=== PATIENT | female | born 1970 | race Caucasian/White ===

== ENCOUNTER → 2017-04-19 | Outpatient (CLI) | payer OTHER ==
[~2017-04-19] MED LIST: MYCO500T4 PO; NORT10CA2 PO; PANT40TA PO
--- NOTE | 2017-04-20 07:40 | MAMMOGRAPHY REPORT ---
BILATERAL DIGITAL SCREENING MAMMOGRAM TOMOSYNTHESIS WITH CAD: 04/19/2017 CLINICAL HISTORY: Routine screening. Patient has no complaints. TECHNIQUE: Breast tomosynthesis in addition to standard 2D mammography was performed. Current study was also evaluated with a Computer Aided Detection (CAD) system. COMPARISON: Comparison is made to exams dated: 04/16/2016 mammogram, 03/07/2014 mammogram, 02/20/2013 u ltrasound, 08/04/2012 ultrasound, 08/04/2012 mammogram, and 12/04/2011 mammogram - [facility]. BREAST COMPOSITION: The tissue of both breasts is extremely dense, which lowers the sensitivity of m ammography. FINDINGS: There is a possible new cluster of microcalcifications in the subareolar upper outer anter ior right breast, for which additional spot magnification views are recommended. There is stable asymmetry in the superior posterior left breast, projecting over the pectoralis muscl e on the MLO view. Evidence of prior surgery in the left breast. No other suspicious mass, building architectural designer ural distortion or cluster of microcalcifications is seen. IMPRESSION: ACR BI-RADS CATEGORY 0: INCOMPLETE EVALUATION: NEED ADDITIONAL IMAGING EVALUATION The possible new cluster of microcalcifications in the subareolar upper outer anterior right breast n eed additional imaging evaluation. The patient will be called to schedule an appointment. Approximately 10% of breast cancers are not detected with mammography. A negative mammographic report should not delay biopsy if a clinically suggestive mass is present. Muna Ruffin M.D. ay/:04/19/2017 15:17:23 Centrifugal Casting Machine Operator: Jeanne ALANIZ(Consuelo)(Evaristo), [facility] letter sent: Addl Imaging 0 BI-RADS Code: ACR BI-RADS Category 0: Incomplete Evaluation: Need Additional Imaging Evaluation
== END | disposition home or self-care (01) ==
LOC: C.MAMM 10:58
PROVIDERS: ATTEND Family Medicine
DX: Z12.31 Encounter for screening mammogram for malignant neoplasm of breast (principal); R92.8 Other abnormal and inconclusive findings on diagnostic imaging of breast

== ENCOUNTER → 2017-04-28 | Outpatient (CLI) | payer OTHER ==
--- NOTE | 2017-04-29 07:49 | MAMMOGRAPHY REPORT ---
UNILATERAL RIGHT DIGITAL DIAGNOSTIC MAMMOGRAM AND TARGETED RIGHT ULTRASOUND: 04/28/2017 CLINICAL HISTORY: Callback from screening mammogram for right breast calcifications. TECHNIQUE: Spot magnification right cc and ML views were obtained. COMPARISON: Comparison is made to exams dated: 04/19/2017 mammogram, 04/16/2016 mammogram, 03/07/2014 m ammogram, 02/20/2013 ultrasound, 02/20/2013 mammogram, and 08/04/2012 ultrasound - [facility]. BREAST COMPOSITION: The tissue of the right breast is extremely dense, which lowers the sensitivity of mammography. FINDINGS: Spot magnification views of the right breast demonstrate faint grouped amorphous calcificat ions in the right superior subareolar breast, measuring approximately 8 mm in total extent on the cc view. Immediately posterior and lateral to the cluster are other grouped calcifications which are li near in distribution although outline a tubular vessel on the lateral view and are consistent with be nign vascular calcifications. After the additional spot magnification views were performed, the patient reported frankly bloody nip ple discharge from the right nipple. Therefore, ultrasound was performed of the right subareolar suha ast, which shows no intraductal masses or other suspicious sonographic abnormalities. A few incident al anechoic benign cysts were seen, including a 6 x 9 mm cyst in the right subareolar breast and a 7 x 4 m cyst with a few thin internal septations in the right 7:00 periareolar breast. The patient reports having a history of left bloody nipple discharge for which duct excision was perf ormed approximately 5 years ago, with pathology reportedly showing inflammation. Although the calcif ications do not have a particularly suspicious appearance, given the right bloody nipple discharge an d given that they are newly visualized, the calcifications are indeterminate and biopsy is recommende d. The calcifications are not amenable to stereotactic biopsy due to the subareolar location, theref ore, surgical biopsy is recommended. IMPRESSION: ACR BI-RADS CATEGORY 4: SUSPICIOUS, TARGETED ULTRASOUND ACR BI-RADS CATEGORY 4: SUSPICIO US 1. Bloody nipple discharge was noted from the right nipple after the additional magnification views were obtained. No clear intraductal mass or other suspicious sonographic abnormality is evident. Re commend surgical consultation for further evaluation. 2. Faint 8 mm group of calcifications in the right subareolar breast. Given the right bloody nipple discharge and given that the calcifications are newly visualized, the calcifications are suspicious a nd biopsy is recommended. The calcifications are not amenable to stereotactic biopsy due to the suba reolar location, therefore, surgical biopsy is recommended. A phone call was made to the physician's office to confirm faxed results were received. The patient has been verbally notified of the results. Approximately 10% of breast cancers are not detected with mammography. A negative mammographic report should not delay biopsy if a clinically suggestive mass is present. Kristina Black M.D. ah/:04/28/2017 12:33:46 Scientific Linguist: Aishwarya CODY)(Evaristo), [facility] letter sent: Abnormal 4/5 BI-RADS Code: ACR BI-RADS Category 4: Suspicious Ultrasound BI-RADS: ACR BI-RADS Category 4: Suspici ous
== END | disposition home or self-care (01) ==
LOC: C.MAMM 08:26
PROVIDERS: ATTEND Family Medicine
DX: R92.0 Mammographic microcalcification found on diagnostic imaging of breast (principal); R92.1 Mammographic calcification found on diagnostic imaging of breast

== ENCOUNTER → 2017-05-06 | Outpatient (CLI) | payer OTHER ==
[~2017-05-06] MED LIST changes: +GADAVIST IV PRN
--- NOTE | 2017-05-06 12:11 | DIAGNOSTIC IMAGING REPORT ---
Brain MRI WITH AND WITHOUT CONTRAST HISTORY: INCREASED WEAKNESS IN EXTREMITY, ONSET OF VERTIGO TECHNIQUE: Multiplanar multisequence MRI of the brain was performed both before and after the intravenous administration of contrast. COMPARISON STUDY: None. FINDINGS: There are no areas of restricted diffusion to suggest acute infarction. The midline structures are intact. The paranasal sinuses are clear. The mastoid air cells are clear. The ventricles and sulci are within normal limits for age. There is no mass, hematoma, midline shift. The major vascular flow-voids at the skull base are well maintained. Postcontrast sequences show no areas of abnormal enhancement. There are a total of 3 punctate foci of T2 hyperintensity seen within the subcortical white matter of the frontal lobes. IMPRESSION: No acute intracranial abnormality. A few punctate foci of T2 hyperintensity seen within the subcortical white matter of the frontal lobes. This is nonspecific but unlikely to represent multiple sclerosis. This favors minimal microvascular ischemic change. Electronically signed by: Nino Shankar M.D. 05/06/2017 12:10 PM Dictated Date/Time: 05/06/2017 12:01 PM
== END | disposition home or self-care (01) ==
LOC: C.MRIBC 10:45
PROVIDERS: ATTEND Psychiatry & Neurology Neurology
DX: G37.9 Demyelinating disease of central nervous system, unspecified (principal)

== ENCOUNTER → 2017-06-11 | Outpatient (CLI) | payer OTHER ==
--- NOTE | 2017-06-14 15:18 | MAMMOGRAPHY REPORT ---
BREAST MRI OF BOTH BREASTS : 06/11/2017 CLINICAL HISTORY: Recent surgical excision of right subareolar breast calcifications, with pathology yielding LCIS as well as benign duct proliferation with columnar cell hyperplasia and luminal calcifi cations. COMPARISON: Comparison is made to exams dated: 04/28/2017 ultrasound, 04/28/2017 mammogram, 7 mammogram, 04/16/2016 mammogram, 03/07/2014 mammogram, and 02/20/2013 mammogram - [facility]. Technique: The patient was placed prone in a dedicated breast imaging coil. Precontrast axial T1-rula ghted, axial T2-weighted fat saturation, and axial T1-weighted fat saturation images were obtained. After the administration of 6 mL of Gadavist IV contrast, sequential T1-weighted fat saturation image s were obtained. Subtraction images were obtained of the dynamic contrast enhanced sequences, and 3- D reformations were performed. The [employer] software was used for kinetic analysis. Findings: There is marked background parenchymal enhancement involving the right breast, and there is moderate background parenchymal enhancement involving the left breast, which lowers the sensitivity of the exa m. The enhancement involving the right breast is diffusely asymmetric compared to the left breast. The asymmetric non-mass enhancement involving the right breast demonstrates a predominantly persisten t kinetic pattern with some scattered plateau and washout kinetics seen. The enhancement is slightly more prominent in the lateral aspect of the breast. No discrete suspicious enhancing mass is seen i n either breast. There are postsurgical changes in the right subareolar breast from recent surgical excision which yielded LCIS, including a T2 hyperintense, nonenhancing 3.1 x 1.5 cm fluid collection in the right subareolar breast at the surgical bed, consistent with a hematoma (series 4 image 32). There are scattered circumscribed T2 hyperintense nonenhancing masses bilaterally, consistent with be nign cysts. There is no evidence of axillary adenopathy. The chest wall structures are negative. Visualized ext ramammary soft tissues are grossly unremarkable. IMPRESSION: ACR BI-RADS CATEGORY 4: SUSPICIOUS 1. Postsurgical changes in the right subareolar breast from recent surgical excision which yielded LC IS, with a 3.1 cm hematoma at the surgical bed. 2. Diffusely asymmetric non-mass enhancement of the right breast compared to the left, without a disc rete enhancing mass seen. Findings could represent normal asymmetric background parenchymal enhancem ent and/or post surgical changes, however, mammographically occult in-situ disease is not excluded. R ecommend MRI guided core needle biopsy for further evaluation. Given that recent surgery was perform ed on this breast and some of the enhancement could be related to postsurgical changes, the other alt ernative would be to perform a short interval follow-up bilateral breast MRI in 3 months and if the a symmetric enhancement persists then biopsy could be performed at that time. A phone call was made to the physician's office to confirm faxed results were received. Kristina Black M.D. ah/:06/13/2017 10:49:53 Economics Lecturer: research physicist, [facility] BI-RADS Code: ACR BI-RADS Category 4: Suspicious
== END | disposition home or self-care (01) ==
LOC: C.MRI 12:55
PROVIDERS: ATTEND Surgery
DX: D05.01 Lobular carcinoma in situ of right breast (principal); R92.2 Inconclusive mammogram; Z98.890 Other specified postprocedural states

== ENCOUNTER → 2017-09-13 | Outpatient (CLI) | payer OTHER ==
--- NOTE | 2017-09-14 15:15 | MAMMOGRAPHY REPORT ---
BREAST MRI OF BOTH BREASTS : 09/13/2017 CLINICAL HISTORY: 47-year-old woman initially callback from screening mammography in April 2017 for microcalcifications in the subareolar right breast. She underwent surgical excisional biopsy/duct e xcision in the right breast which yielded LCIS. A breast MRI performed after surgery demonstrated gl obal asymmetric enhancement of the right breast compared to the left for which biopsy versus very lei rt follow-up MRI was recommended. COMPARISON: Comparison is made to exams dated: 02/20/2013 ultrasound, 03/07/2014 mammogram, 04/16/2016 mammogram, 04/19/2017 mammogram, 04/28/2017 ultrasound, and 06/11/2017 breast MRI - [facility]. TECHNIQUE: Using a 1.5 Suzan magnet and dedicated breast coil, multisequence axial images were obtain ed through the breasts. After uneventful IV administration of 6 mL of Gadavist, dynamic multiphase c ontrast-enhanced axial images, and sagittal postcontrast were obtained. Temporal subtraction axial i mages and 3-D MIP images are provided. Everything was then reviewed on a 3-D workstation, [employer]. FINDINGS: Right breast: There are numerous scattered T2 hyperintense subcentimeter cysts in the right breast. There is moderate background enhancement of the right breast which is predominantly nodular and patch y in pattern. This is decreased from the confluent global enhancement of the right breast seen on pr ior MRI. Currently, the enhancement of the right breast appears symmetric to the left, and the globa l asymmetric enhancement seen on the prior exam was likely secondary to prior surgery. The kinetic p attern of the nodular areas of enhancement is predominantly persistent and plateau, with scattered ar eas of washout kinetics. There is no dominant enhancing mass, focal area of washout kinetics or arch itectural distortion. A fluid collection is no longer identified in the subareolar right breast. No abnormal skin thickening or nipple retraction. No suspicious right axillary lymphadenopathy. Left breast: There are numerous scattered T2 hyperintense subcentimeter cysts in the left breast. Th ere is moderate background enhancement of the left breast, predominantly nodular and patchy in patter n. The nodular areas of enhancement are similar in pattern to the prior breast MRI dated 06/11/2017, although some of the foci of enhancement are linear, angular and irregular. Given the diffuse bilate ral nature and similar appearance of the enhancement in both breasts, this is likely within the range of normal background. No new dominant enhancing mass, suspicious washout kinetics or areas of archi tectural distortion identified. No focal skin thickening or nipple retraction. No suspicious left a xillary lymphadenopathy. IMPRESSION: ACR-BI-RADS CATEGORY 3: PROBABLY BENIGN 1. Interval decrease in the previously observed global asymmetric non-mass enhancement of the right breast compared to the left, suggesting benignity, possibly due to prior surgery. 2. Moderate diffuse nodular enhancement of both breasts, likely within the range of normal backgroun d. The nodular enhancement pattern of the left breast is similar to the prior MRI although some of t he nodular areas of enhancement in each breast are angular and irregular. Therefore another follow-u p breast MRI is recommended in 6-12 months to ensure longer stability. 3. Evolving postsurgical changes in the subareolar right breast, with resolution of the previously o bserved 3 cm fluid collection. 4. No suspicious axillary adenopathy bilaterally. 5. Annual screening mammography is also due in April 2018. The patient will receive written notification of the results. Muna Ruffin M.D. ay/:09/13/2017 21:14:31 Infection Control Practitioner: community leader, [facility] letter sent: Follow Up Recommended 3 BI-RADS Code: ACR-BI-RADS Category 3: Probably Benign
== END | disposition home or self-care (01) ==
LOC: C.MRI 08:35
PROVIDERS: ATTEND Surgery
DX: R92.8 Other abnormal and inconclusive findings on diagnostic imaging of breast (principal); N64.9 Disorder of breast, unspecified; N63.10 Unspecified lump in the right breast, unspecified quadrant; N63.20 Unspecified lump in the left breast, unspecified quadrant

== ENCOUNTER → 2017-11-09 | Outpatient (CLI) | payer OTHER ==
[~2017-11-09] MED LIST changes: -GADAVIST IV PRN
--- NOTE | 2017-11-10 15:47 | MAMMOGRAPHY REPORT ---
UNILATERAL RIGHT DIGITAL DIAGNOSTIC MAMMOGRAM TOMOSYNTHESIS WITH CAD: 11/09/2017 CLINICAL HISTORY: 47-year-old woman presents for a follow-up in the right breast. 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 A recent breast MRI demonstrated diffuse nodular background enhancement, but no longer global asymmetry of the right versus left breast enhancement. A six-month follow-up breast MRI was also recommended based on that exam. TECHNIQUE: Right breast CC and MLO 2D and tomosynthesis images, spot magnification right CC and ML vi ews were obtained. Current study was also evaluated with a Computer Aided Detection (CAD) system. COMPARISON: Comparison is made to exams dated: 09/13/2017 breast MRI, 06/11/2017 breast MRI, 04/28/2017 ultrasound, 04/28/2017 mammogram, 04/19/2017 mammogram, and 04/16/2016 mammogram - [facility]. BREAST COMPOSITION: The tissue of the right breast is extremely dense, which lowers the sensitivity of mammography. FINDINGS: There is evidence of prior surgery in the anterior subareolar right breast, with mild skin thickening and differing contour of the right nipple comparing to prior mammograms. No obvious new m ass, developing asymmetry or focal area of architectural distortion is identified. There are faint m icrocalcifications in the slightly superior, middle one third of the right breast on the MLO view, th ought to project laterally based on the CC view, for which additional spot magnification views were o btained. The spot magnification views demonstrate no residual microcalcifications in the anterior, subareolar breast at the site of recent excisional biopsy. There are a few scattered round microcalcifications and 2-3 groupings of faint punctate microcalcifications in the superior middle one third of the breas t (best seen on the mag ML view) that may have been present on the prior 04/19/2017 and 04/16/2016 mamm ograms, but difficult for accurate comparison given slight differences in positioning and technique. Assessing the location of these microcalcifications and comparing to the MRI, it is unclear if this correlates with any enhancement given the diffuse nodular background enhancement on MRI. Given the n umerous groupings of the microcalcifications and slightly different morphology from the biopsy-proven lobular neoplasia in the subareolar right breast, these other calcifications may represent benign fi brocystic change. However, a close follow-up diagnostic mammogram including spot magnification views is recommended to ensure stability in 6 months. IMPRESSION: ACR-BI-RADS CATEGORY 3: PROBABLY BENIGN 1. There are expected postsurgical changes in the right breast, with approximately 3 groupings of fa int punctate microcalcifications in the superior middle one third of the right breast that could repr esent benign fibrocystic change. However, a close follow-up right diagnostic mammogram including spo t magnification views is recommended to ensure stability in 6 months. 2. Based on a recent breast MRI, a six-month follow-up breast MRI is also recommended, given the dif fuse nodular background parenchymal enhancement. 3. Given the personal history of extremely dense breasts and lobular neoplasia, would recommend cont inued long-term screening with breast MRI in addition to mammography. These results and recommendations were discussed with the patient at the time of the exam. Approximately 10% of breast cancers are not detected with mammography. A negative mammographic report should not delay biopsy if a clinically suggestive mass is present. Muna Ruffin M.D. ay/:11/09/2017 16:16:48 K 9 Police Officer: Aishwarya ALANIZ(Consuelo)(Evaristo), [facility] letter sent: Follow Up Recommended 3 BI-RADS Code: ACR-BI-RADS Category 3: Probably Benign
== END | disposition home or self-care (01) ==
LOC: C.MAMM 09:49
PROVIDERS: ATTEND Surgery
DX: R92.8 Other abnormal and inconclusive findings on diagnostic imaging of breast (principal); R92.0 Mammographic microcalcification found on diagnostic imaging of breast

== ENCOUNTER → 2017-11-18 | Outpatient (CLI) | payer OTHER ==
[2017-11-18 09:35] LABS: BASO % 0.4 %; BASO ABS # 0.02 K/uL (0-0.2); EOS ABS # 0.05 K/uL (0-0.5); HEMATOCRIT 39.5 % (37-47); IG# 0.01 K/uL (0.00-0.02); LYMPH % 26.7 %; LYMPH ABS # 1.32 K/uL (1.2-3.4); MEAN CELL VOLUME 90.6 fL (80-100); MEAN CORPUSCULAR HEMOGLOBIN 29.8 pg (25-34); MEAN CORPUSCULAR HGB CONC 32.9 g/dl (32-36); MEAN PLATELET VOLUME 9.1 fL (7.4-10.4); MONO % 8.3 %; MONO ABS # 0.41 K/uL (0.11-0.59); NEUT % 63.4 %; NEUT ABS # 3.13 K/uL (1.4-6.5); PLATELET COUNT 272 K/uL (130-400); RED CELL DISTRIBUTION WIDTH CV 12.5 % (11.5-14.5); RED CELL DISTRIBUTION WIDTH SD 41.6 fL (36.4-46.3); WHITE BLOOD COUNT 4.94 K/uL (4.8-10.8)
[2017-11-18 09:49] LABS: ALBUMIN 3.8 gm/dl (3.4-5.0); ALT/SGPT 22 U/L (12-78); AST/SGOT 13 U/L (15-37); BLOOD UREA NITROGEN 16 mg/dl (7-18); CALCIUM 8.4 mg/dl (8.5-10.1); CARBON DIOXIDE 25 mmol/L (21-32); CREATININE 0.71 mg/dl (0.60-1.20); GLUCOSE 78 mg/dl (70-99); POTASSIUM 3.8 mmol/L (3.5-5.1); SODIUM 140 mmol/L (136-145)
[2017-11-18 09:59] LABS: ALKALINE PHOSPHATASE 62 U/L (45-117); CHOLESTEROL 159 mg/dl (0-200); LDL CHOLESTEROL CALCULATED 77 mg/dl; TOTAL PROTEIN 7.2 gm/dl (6.4-8.2)
== END | disposition home or self-care (01) ==
LOC: C.LAB 08:12
PROVIDERS: ATTEND Neuromusculoskeletal Medicine & OMM
DX: R53.83 Other fatigue (principal)

== ENCOUNTER → 2017-11-26 | Outpatient (CLI) | payer OTHER ==
[~2017-11-26] MED LIST changes: +GADAVIST IV PRN
--- NOTE | 2017-11-26 17:48 | DIAGNOSTIC IMAGING REPORT ---
THORACIC SPINE COMBO CLINICAL HISTORY: DEVIC'S DISEASE neuromyelitis optica COMPARISON STUDY: No previous studies for comparison. FINDINGS: Imaging was performed in the axial and sagittal planes, before and after the administration of 5.5 cc of intravenous Gadavist. There are no suspicious areas of marrow replacement. There is a tiny focal fatty rests/hemangiomas at T8 level. The spinal cord lesions are visualized. There is a small central disc protrusion at the T7-8 level. There are mild disc bulges at T9-10 and T10-11 levels. Postcontrast images reveal no pathologically enhancing lesions. IMPRESSION: 1. No spinal cord lesions identified 2. Small central disc protrusion at the T7-8 level 3. Mild disc bulges the T9-T10 and T10-11 levels. Electronically signed by: Anders Kwon M.D. 11/26/2017 5:46 PM Dictated Date/Time: 11/26/2017 5:41 PM
--- NOTE | 2017-11-26 17:54 | DIAGNOSTIC IMAGING REPORT ---
MRI CERVICAL SPINE COMBO CLINICAL HISTORY: DEVIC'S DISEASE TECHNIQUE: Sagittal and axial T1, T2 and STIR images were obtained. Pre and post contrast images were also acquired. The patient was administered 5.5 cc of intravenous Gadavist. COMPARISON STUDY: No previous studies for comparison. There are no suspicious areas of marrow replacement. No intrinsic cervical cord lesions are visualized. C2-3: There is no evidence of disc bulge or focal herniation. There is no spinal or foraminal stenosis. C3-4: There is a small left paracentral disc protrusion which deforms the left anterior aspect the thecal sac. There is minimal spinal cord deformity. There is no foraminal narrowing. C4-5: There is a broad-based circumferential disc bulge with minimal spinal canal narrowing. There is mild bilateral foraminal narrowing. C5-6 :There is a circumferential disc bulge with minimal spinal canal narrowing. There is bilateral foraminal narrowing C6-7: There is no evidence of disc bulge or focal herniation. There is no evidence of spinal or foraminal stenosis. C7-T1: There is no evidence of disc bulge or focal herniation. There is no evidence of spinal or foraminal stenosis. Postcontrast images reveal no pathologically enhancing lesions. IMPRESSION: 1. No cervical cord lesions are visualized 2. Small left paracentral disc protrusion at the C3-4 level 3. C4-5 and C5-C6 disc bulges with secondary minimal spinal canal narrowing and mild bilateral foraminal narrowing Electronically signed by: Anders Kwon M.D. 11/26/2017 5:52 PM Dictated Date/Time: 11/26/2017 5:48 PM
== END | disposition home or self-care (01) ==
LOC: C.MRI 16:10
PROVIDERS: ATTEND Psychiatry & Neurology Neurology
DX: M50.20 Other cervical disc displacement, unspecified cervical region (principal); M51.24 Other intervertebral disc displacement, thoracic region; G36.0 Neuromyelitis optica [Devic]

== ENCOUNTER → 2018-02-10 | Outpatient (CLI) | payer OTHER ==
[~2018-02-10] MED LIST changes: -GADAVIST IV PRN
--- NOTE | 2018-02-10 14:54 | DIAGNOSTIC IMAGING REPORT ---
L LOWER EXT JOINT WITHOUT CLINICAL HISTORY: 47 years-old Female with LEFT KNEE PAIN. Acute left knee pain, most pronounced laterally with soft tissue swelling COMPARISON: Left knee ultrasound 01/24/2018 TECHNIQUE: Multiplanar, multisequence MRI of the left knee was performed without intravenous contrast. FINDINGS: MENISCI: Multidirectional linear increased T2 signal involves the anterior horn lateral meniscus with extension to the inferior articular surface, nicely seen on images 14 and 15 of series 6 and image 13 series 9 compatible with complex tear. Moderate reactive parameniscal edema. There is a 0.6 x 0.2 cm T2 hyperintense focus adjacent to the lateral meniscal body on image 17 series 9 suggesting a possible parameniscal cyst. No evidence of displaced fragment. Medial meniscus is sharp in contour and appears intact. CRUCIATE LIGAMENTS: The anterior and posterior cruciate ligaments are normal in morphology and course. Mucoid degeneration of the intact ACL. COLLATERAL LIGAMENTS: The popliteus tendon, biceps femoris tendon, fibular collateral ligament and iliotibial band are intact. The superficial and deep components of the medial collateral ligament are intact. EXTENSOR MECHANISM: The quadriceps and patellar tendons are intact. The medial and lateral patellar retinacula are intact. Trace fluid within the deep prepatellar bursa. KNEE JOINT: Small joint effusion. No high-grade chondral loss or intra-articular loose body. Low-grade chondromalacia of the patellar apex. BONE MARROW: The bone marrow signal is age appropriate. No fracture, marrow edema, or marrow replacing process. 3 mm subcortical cyst of the anterior lateral tibial plateau. SOFT TISSUES: Trace Hinkle's cyst measures up to 2.2 cm in cranial caudal dimension. Mild adjacent deep tissue edema suggests leaking component of the Hinkle's cyst. There is moderate amount of edema within Hoffa's fat pad. IMPRESSION: 1. Acute appearing complex tear of the anterior horn lateral meniscus with moderate reactive parameniscal edema and suggested subcentimeter adjacent parameniscal cyst. 2. Small joint effusion with moderate amount of edema within Hoffa's fat pad, also possibly reactive. 3. Trace fluid within the deep prepatellar bursa may reflect developing bursitis. 4. No acute ligamentous tear. The above report was generated using voice recognition software. It may contain grammatical, syntax or spelling errors. Electronically signed by: Marcus Nobles M.D. 02/10/2018 2:53 PM Dictated Date/Time: 02/10/2018 2:43 PM
== END | disposition home or self-care (01) ==
LOC: C.MRIBC 13:32
PROVIDERS: ATTEND Orthopaedic Surgery
DX: S83.282A Other tear of lateral meniscus, current injury, left knee, initial encounter (principal); X58.XXXA Exposure to other specified factors, initial encounter

== ENCOUNTER 2025-06-23 09:19 | Inpatient (IN) ==
[2025-06-23 10:08] LABS: Hematocrit (blood only) 36.1 % (37.0-47.0); Hemoglobin 12.3 g/dL (12.0-16.0); Immature Granulocytes # (auto) 0.02 K/uL (0.01-0.20); Immature Granulocytes % (auto) 0.3 %; Mean Corpuscular Hemoglobin 30.3 pg (25.0-34.0); Mean Corpuscular Volume 88.9 fL (80.0-100.0); Platelet Count 290 K/uL (130-400); RDW Standard Deviation 39.9 fL (36.4-46.3); Red Blood Count 4.06 M/uL (4.20-5.40); White Blood Count 7.48 K/ul (4.8-10.8)
[2025-06-23 10:24] LABS: Alanine Aminotransferase 16 U/L (7-52); Albumin Globulin Ratio 1.5 (0.9-2); Albumin Level 4.1 gm/dl (3.4-5.0); Alkaline Phosphatase 73 U/L (34-104); Anion Gap 9 (3-11); Bilirubin,Total 0.5 mg/dl (0.2-1.0); Blood Urea Nitrogen 14 mg/dl (6-23); Calcium 8.8 mg/dl (8.6-10.3); Carbon Dioxide 24 mmol/L (21-32); Chloride 106 mmol/L (98-107); Creatinine Clr Calc Pharmacy 92.3 ml/min; Globulin 2.7 gm/dl (2.5-4.0); Glucose 92 mg/dl (70-99(Fasting)); Magnesium 2.1 mg/dl (1.7-2.4); Potassium 3.9 mmol/L (3.5-5.1); Sodium 139 mmol/L (136-145); Total Protein 6.8 gm/dl (6.0-8.3)
--- NOTE | 2025-06-23 10:24 | Emergency Department Note ---
Impression & Plan Pneumonia, Myalgia, Weakness ED Provider Note NAME: CHRISTOFER MAS AGE: 55 SEX: F : 1970 ARRIVES VIA: Walk-In INFORMANT: Patient ED PROVIDER(S): Dheeraj Joyner DO CHIEF COMPLAINT: Headache, myalgias and arthralgias HPI: Patient is a 55-year-old female with a past medical history of IBS, lupus, and optic myelitis who presents to the ER for not feeling well. Symptoms initially started within the past week and has been having headaches diffuse myalgias and arthralgias. She had MRIs done as an outpatient and followed up with her bending frame operator who sent her down to [place] for a new medication benlysta which she started on Wednesday. She has been feeling hot and cold since then and had a severe headache. No recorded fevers. She notes that she has a stabbing pain in the left frontal region followed by diffuse pain throughout the entire head. No neck stiffness. She notes that she does have a little residual cough from URI that occurred about 2 weeks ago. She notes that she always has a sore throat and it is unchanged. She notes that all of her joints do bother her. ADDITIONAL HISTORY OBTAINED: Per HPI Chronic Medical/Social Conditions Affecting Care: Per HPI PAST MEDICAL HISTORY:See Below PAST SURGICAL HISTORY:See Below FAMILY HISTORY:See Below SOCIAL HISTORY:See Below HOME MEDICATIONS:See Below ALLERGIES:See Below VITALS:See Below PHYSICAL EXAMINATION: GENERAL: Sitting up in bed, alert, well appearing, well nourished, no distress, non-toxic EYE EXAM: normal conjunctiva. PERRL and EOM's intact. OROPHARYNX: no exudate, no erythema, lips, buccal mucosa, and tongue normal and mucous membranes are moist NECK: supple, no nuchal rigidity, no adenopathy, non-tender LUNGS: Clear to auscultation. Normal chest wall mechanics HEART: no murmurs, S1 normal and S2 normal ABDOMEN: abdomen soft, non-tender, normo-active bowel sounds, no masses, no rebound or guarding. UPPER EXTREMITIES: upper extremities are grossly normal. LOWER EXTREMITIES: No pitting edema. NEURO EXAM: Normal sensorium, cranial nerves II-XII grossly intact, normal speech, no gross weakness of arms, no gross weakness of legs. MEDICAL DECISION MAKING: Patient is a 55-year-old female who presents ER for above-stated complaint. IV was established blood work was obtained. Labs show no significant leukocytosis or anemia. BMP with LFTs bilirubin and lactic acid was unremarkable. Troponin was negative. Pro-Erwin was negative. UA was clean. Viral panel was negative. Chest x-ray suggested bilateral infiltrates. CTA of the chest was performed and showed and confirmed bilateral pneumonia. Did discuss with the radiologist and confirmed this. Patient was given IV cefepime and IV azithromycin. CT head was negative. Patient was updated at bedside. Was given IV fluids, Toradol, Benadryl and Compazine. Headache improved significantly. Discussed case with the hospitalist for further evaluation management treatment. Consults/Care Managements Discussions: Per [facility] Triage Nursing notes reviewed. Limited review of prior medical records performed Vital Signs: reviewed and remarkable for no significant abnormalities Differential diagnosis: Differential Diagnosis includes but is not limited to headache, tension headache, cluster headache, migraine, subarachnoid hemorrhage, meningitis, mass, central venous thrombus, concussion, trauma and epidural/subdural hemorrhage. ER treatment provided: See below Diagnostics interpreted by me include EKG and cardiac monitoring as listed below: -Cardiac Monitoring: An order was placed for continuous cardiac monitoring. The monitor shows a rate of 80 with sinus rhythm. -ECG: Sinus rhythm rate 87 Normal axis No PVCs QTc 435 -Laboratory studies:Interpreted by me as stated above in MDM and shown below. Imaging studies: Xrays: As interpreted by me: Portable AP upright 1 view of the chest shows no focal trait CTs show: CT head and CT angio of the chest as described above Procedures:none Critical Care: None Past Med/Surg History Problem List (Updated 06/23/25 @ 15:48 by Fina Harris PA-C) Asthenia Lupus (systemic lupus erythematosus) Headache Weakness (Acute) Myalgia (Acute) Pneumonia (Acute) Early satiety High risk medication use Dyspnea on exertion Mild persistent asthma Idiopathic interstitial pneumonia Colon cancer screening Dyspnea Chronic cough cough is much better COVID-19 (Acute) COVID-19 (Acute) MCL sprain of left knee Knee pain, left Tear of medial meniscus of left knee Lobular carcinoma in situ (LCIS) of breast (Acute) Devic's disease (Acute) False positive antinuclear antibody level (Acute) Migraine, unspecified, not intractable, without status migrainosus (Acute) Positive LOVE (antinuclear antibody) (Acute) Vitamin D insufficiency Lumbar radiculopathy Abdominal pain, epigastric Encounter for pre-operative examination Neuromyelitis optica DX'D 2004 F/U [facility]-HAS AFFECTED HER BLADDER HX VISION LOSS AND RETURNED Urinary urgency History of IBS Back pain IBS (irritable bowel syndrome) (Chronic) Abdominal pain (Acute) Constipation (Acute) Abdominal pain (Acute) Medical History Hx of migraines Lumbar radiculopathy Mild persistent asthma states has resolved since taking hydroxychloriquine Devic's disease follows with neuro at [facility]- dr. salgado- also sees neuro at [facility]- no deficits Spinal stenosis Chronic back pain Lupus follows with dr. rosado in [facility]- states missing one marker for lupus History of dyspnea NOW RESOLVED History of COVID-19 + TEST AUG 04 2022 Difficult intravenous access Lobular carcinoma in situ hx- took tamoxifen for short time Abnormal CT scan, chest Palpitations hx/not for awhile/recent heart monitor worn- unknown results Lung nodule Fatigue Gastritis determined by endoscopy Immunosuppression Ischemic colitis hx Neuromyelitis optica follows with neurology at [facility] and also with Dr. Domínguez Herniated disc L4 L5-BACK PAIN GERD (gastroesophageal reflux disease) Temporomandibular joint disorder no clicking or locking recently- has had both in past Surgical History History of esophagogastroduodenoscopy (EGD) History of bronchoscopy states felt has lupus/ has lung damage Status post laparoscopic hysterectomy History of tooth extraction History of breast biopsy X 2-MILK DUCT REMOVAL X 2-3 both breasts History of colonoscopy History of section X 2 Family History Sister Breast cancer Unknown Heart disease Hypertension Asthma Father Pre-diabetes Brain cancer Mother History of stroke Denies family history of Colon cancer Ovarian cancer Prostate cancer Myocardial infarction Social History Smoking Status: Never smoker Second Hand Exposure: No; Do You Dip or Chew Tobacco: No; Hx Alcohol Use: Yes Alcohol type: wine Alcohol Intake Frequency: Monthly or Less Hx Substance Use: No Preferred Language: Bulgarian Communication Ability: Effective Visual Impairment: No Limitations Hearing Ability: Normal Case Mgr Required: No Beliefs That Will Affect Care: None marital status: Current Living Situation: Spouse current occupational status: unemployed How many Children do You have: 2 Feels Safe at Home: Yes Childhood Exposure to Second-Hand Smoke: Yes Diet: regular caffeine: Yes during the past year weight has: remained stable Dental Care, Regularly: Yes Physical Activity Frequency: Daily Seatbelt Use: always Sunscreen Use: Yes Assistive Devices: Contacts and Glasses Allergies Allergies Allergy/AdvReac Type Severity Reaction Status Date / Time Sulfa (Sulfonamide Allergy Mild RASH Verified 12/28/24 10:42 Antibiotics) Home Meds Home Medications Medication Instructions Recorded Confirmed albuterol sulfate 90 mcg/actuation 2 puffs inhalation UD PRN 10/27/22 06/23/25 aerosol inhaler shortness of breath or wheezing hydroxychloroquine 200 mg tablet 200 - 300 mg PO UD 12/25/24 06/23/25 magnesium 200 mg tablet 200 mg PO DAILY 12/25/24 06/23/25 belimumab 200 mg/mL subcutaneous 200 mg subcut WK 06/23/25 06/23/25 auto-injector (Benlysta) gabapentin 100 mg capsule 100 mg PO HS 06/23/25 06/23/25 Previous Rx's Medication Instructions Recorded mycophenolate mofetil 500 mg tablet 1,000 mg (2 x 500 mg) PO BID #360 11/15/24 tabs pantoprazole 40 mg tablet,delayed 40 mg PO BID #60 tabs 12/20/24 release Results & Data (ED) Vital Signs Vital Signs - 24 hr 06/23/25 09:24 06/23/25 10:00 06/23/25 10:00 Temperature 37.5 C Temperature Source Oral Pulse Rate 95 H 82 Pulse Rate from SpO2 Sensor 83 Respiratory Rate 18 17 Respiratory Effort / Characteristics Non-Labored Spontaneous Respiratory Depth Normal Respiratory Pattern Regular Blood Pressure 138/75 136/81 144/84 H Blood Pressure Mean 96 99 104 Pulse Oximetry 90 91 Oxygen Delivery Method Room Air Sepsis Recent Fever Within 48 Hours No Sepsis New/Unexplained Change in Mental Status N/A Sepsis Action Taken by Nursing No Action Required 06/23/25 10:09 06/23/25 10:30 06/23/25 11:00 Temperature Temperature Source Pulse Rate 86 81 83 Pulse Rate from SpO2 Sensor 77 85 Respiratory Rate 17 19 Respiratory Effort / Characteristics Respiratory Depth Respiratory Pattern Blood Pressure 151/82 H Blood Pressure Mean 105 Pulse Oximetry 92 96 Oxygen Delivery Method Sepsis Recent Fever Within 48 Hours Sepsis New/Unexplained Change in Mental Status Sepsis Action Taken by Nursing 06/23/25 12:15 06/23/25 12:30 06/23/25 13:00 Temperature Temperature Source Pulse Rate 98 H 81 98 H Pulse Rate from SpO2 Sensor 98 H 81 96 H Respiratory Rate 23 17 23 Respiratory Effort / Characteristics Respiratory Depth Respiratory Pattern Blood Pressure 134/65 141/81 H Blood Pressure Mean 88 101 Pulse Oximetry 88 L 94 93 Oxygen Delivery Method Sepsis Recent Fever Within 48 Hours Sepsis New/Unexplained Change in Mental Status Sepsis Action Taken by Nursing 06/23/25 13:30 06/23/25 14:00 06/23/25 14:28 Temperature Temperature Source Pulse Rate 98 H 101 H 98 H Pulse Rate from SpO2 Sensor Respiratory Rate 24 16 Respiratory Effort / Characteristics Respiratory Depth Respiratory Pattern Blood Pressure 144/77 H 131/79 Blood Pressure Mean 99 96 Pulse Oximetry Oxygen Delivery Method Sepsis Recent Fever Within 48 Hours Sepsis New/Unexplained Change in Mental Status Sepsis Action Taken by Nursing 06/23/25 14:30 06/23/25 15:00 Temperature Temperature Source Pulse Rate 100 H 99 H Pulse Rate from SpO2 Sensor 100 H 98 H Respiratory Rate 15 15 Respiratory Effort / Characteristics Respiratory Depth Respiratory Pattern Blood Pressure 138/74 134/78 Blood Pressure Mean 95 96 Pulse Oximetry 93 90 Oxygen Delivery Method Sepsis Recent Fever Within 48 Hours Sepsis New/Unexplained Change in Mental Status Sepsis Action Taken by Nursing Laboratory Data 06/23/25 09:54 06/23/25 09:54 Lab Results 06/23/25 06/23/25 06/23/25 Range/Units 09:54 11:41 11:44 WBC 7.48 (4.8-10.8) K/ul RBC 4.06 L (4.20-5.40) M/uL Hgb 12.3 (12.0-16.0) g/dL Hct 36.1 L (37.0-47.0) % MCV 88.9 (80.0-100.0) fL MCH 30.3 (25.0-34.0) pg MCHC 34.1 (32.0-36.0) g/dL RDW Std Deviation 39.9 (36.4-46.3) fL RDW Coeff of Yocasta 12.3 (11.5-14.5) % Plt Count 290 (130-400) K/uL MPV 8.9 L (9.4-12.4) fL Immature Gran % (Auto) 0.3 % Neut % (Auto) 84.8 % Lymph % (Auto) 7.1 % [place] % (Auto) 7.0 % Eos % (Auto) 0.4 % Baso % (Auto) 0.4 % Neut # (Auto) 6.35 (1.40-6.50) K/uL Lymph # (Auto) 0.53 L (1.20-3.40) K/uL [place] # (Auto) 0.52 (0.11-0.59) K/uL Eos # (Auto) 0.03 (0.00-0.50) K/uL Baso # (Auto) 0.03 (0.00-0.20) K/uL Immature Gran # (Auto) 0.02 (0.01-0.20) K/uL Sodium 139 (136-145) mmol/L Potassium 3.9 (3.5-5.1) mmol/L Chloride 106 (98-107) mmol/L Carbon Dioxide 24 (21-32) mmol/L Anion Gap 9 (3-11) BUN 14 (6-23) mg/dl Creatinine 0.62 (0.6-1.2) mg/dl Est Cr Clr Drug Dosing 92.3 ml/min eGFR 105.10 BUN/Creatinine Ratio 22.6 H (10-20) Glucose 92 (70-99(Fasting)) mg/dl Lactate 1.2 (0.4-2.0) mmol/L Calcium 8.8 (8.6-10.3) mg/dl Magnesium 2.1 (1.7-2.4) mg/dl Total Bilirubin 0.5 (0.2-1.0) mg/dl AST 20 (13-39) U/L ALT 16 (7-52) U/L Alkaline Phosphatase 73 (34-104) U/L Troponin I High Sens < 2.3 (0-14) pg/ml Total Protein 6.8 (6.0-8.3) gm/dl Albumin 4.1 (3.4-5.0) gm/dl Globulin 2.7 (2.5-4.0) gm/dl Albumin/Globulin Ratio 1.5 (0.9-2) Procalcitonin 0.11 (0-0.5) ng/ml Urine Color Yellow Urine Appearance Clear (Clear) Urine pH 7.0 (4.5-7.5) Ur Specific [place] 1.009 (1.000-1.030) Urine Protein Negative (Negative) Urine Glucose (UA) Negative (Negative) Urine Ketones Negative (Negative) Urine Blood Negative (Negative) Urine Nitrite Negative (Negative) Urine Bilirubin Negative (Negative) Urine Urobilinogen Negative (Negative) Ur Leukocyte Esterase Negative (Negative) Urine Comment Adenovirus (PCR) Not Detected (NotDetected) B. pertussis DNA (PCR) Not Detected (NotDetected) B.parapertussis DNA PCR Not Detected (NotDetected) C. pneumoniae DNA (PCR) Not Detected (NotDetected) Coronavirus OC43 (PCR) Not Detected (NotDetected) Coronavirus HKU1 (PCR) Not Detected (NotDetected) Coronavirus 229E (PCR) Not Detected (NotDetected) SARS-CoV-2 (PCR) Not Detected (NotDetected) Coronavirus NL63 (PCR) Not Detected (NotDetected) Human Metapneumovir PCR Not Detected (NotDetected) Influenza Type A (PCR) Not Detected (NotDetected) Influenza Type B (PCR) Not Detected (NotDetected) M. pneumoniae (PCR) Not Detected (NotDetected) Parainfluenza 1 (PCR) Not Detected (NotDetected) Parainfluenza 2 (PCR) Not Detected (NotDetected) Parainfluenza 3 (PCR) Not Detected (NotDetected) Parainfluenza 4 (PCR) Not Detected (NotDetected) RSV (PCR) Not Detected (NotDetected) Entero/Rhino (PCR) Not Detected (NotDetected) Administered Medications Discontinued Medications Diphenhydramine HCl (Diphenhydramine 50 Mg/Ml Vial) 50 mg IV NOW STA Stop: 06/23/25 10:20 Last Admin: 06/23/25 11:51 Dose: 50 mg Documented By: ALICE Sodium Chloride (Nss) 1,000 mls @ 999 mls/hr IV .Q1H1M ONE Stop: 06/23/25 11:19 Last Infusion: 06/23/25 15:14 Dose: Infused Documented By: Admin: 06/23/25 11:52 Dose: 999 mls/hr Documented By: ALICE Prochlorperazine (Compazine) 2 mls @ 1 mls/min IV ONE ONE Stop: 06/23/25 10:20 Last Admin: 06/23/25 11:52 Dose: 1 mls/min Documented By: ALICE Cefepime HCl (Maxipime 2000mg) 2,000 mg in 20 mls @ 5 mls/min IV NOW STA; Protocol Stop: 06/23/25 12:20 Last Admin: 06/23/25 12:42 Dose: 5 mls/min Documented By: ALICE Azithromycin (Zithromax) 500 mg in 255 mls @ 127.5 mls/hr IV NOW ONE Stop: 06/23/25 14:22 Last Infusion: 06/23/25 15:19 Dose: Infused Documented By: Admin: 06/23/25 13:16 Dose: 127.5 mls/hr Documented By: ALICE Ioversol (Optiray 320 125ml) 119 ml IV ONCE ONE Stop: 06/23/25 12:13 Last Admin: 06/23/25 12:12 Dose: 119 ml Documented By: MATEUS Ketorolac Tromethamine (Ketorolac Tromethamine 15 Mg/Ml Vial) 15 mg IV NOW ONE Stop: 06/23/25 10:20 Last Admin: 06/23/25 11:51 Dose: 15 mg Documented By: ALICE Imaging Data Radiologist's Impression: Chest X-Ray 06/23/25 10:19 Clinical History: Sepsis Technique: A frontal view of the chest was obtained Comparison is made to the prior examination dated 04/21/2025 Findings: There are new patchy left midlung and bilateral lung base opacities, concerning for pneumonia. The heart size is within normal limits. No pleural effusion or pneumothorax is seen. There is no definite pulmonary nodule. No fracture is noted. No foreign body is seen Impression: Suspected bilateral pneumonia Electronically signed by Lupillo Boudreaux 06-23-2025 11:06 AM Chest CTA 06/23/25 11:32 Technique: Axial computed tomography images were obtained of the chest after the administration of intravenous contrast according to the CT angiogram protocol Comparison is made to the prior CT dated 09/10/2022 Findings: There is no definite sign of pulmonary embolism. There are new multifocal groundglass and interstitial infiltrates throughout both lungs, most likely due to pneumonia. There is no pleural effusion or pneumothorax. There is an unchanged 5 mm right middle lobe nodule There are mildly enlarged mediastinal lymph nodes, measuring up to 1.3 cm in short axis. No hilar or axillary adenopathy is seen. The thoracic aorta appears unremarkable with no sign of aneurysm or dissection. There is no pericardial effusion The visualized upper abdomen appears unremarkable. No fracture is seen. No focal osseous lesion is evident Impression: 1. No definite sign of pulmonary embolism 2. Multifocal groundglass and interstitial pulmonary infiltrates bilaterally, likely due to viral or other atypical pneumonia 3. Mild mediastinal adenopathy, which may be secondary to the pneumonia 4. Unchanged 5 mm right middle lobe nodule, almost certainly benign given the long-term stability Electronically signed by Lupillo Boudreaux 06-23-2025 12:[address] 06/23/25 11:38 Clinical History: Headache. Technique: Axial computed tomography images were obtained of the brain from the vertex to the skull base without intravenous contrast. Findings: There is no sign of intracranial hemorrhage. There is normal bess-white matter differentiation with no sign of acute or old infarction. No midline shift or other form of herniation is identified. There is no hydrocephalus. No obvious mass lesion is seen on this noncontrast examination. The visualized portions of the orbits and paranasal sinuses appear unremarkable. The mastoid air cells appear clear Impression: Unremarkable noncontrast CT of the brain Electronically signed by Lupillo Boudreaux 06-23-2025 12:27 PM Discharge Plan Visit Data Chief Complaint: Flu Like Symptoms Stated Complaint: HEADACHE, FEVER, CHILLS, ACHES ED Provider: Dheeraj Joyner Discharge Problem: Pneumonia, Myalgia, Weakness Patient Disposition: Admitted As Inpatient Condition: Fair Discharge Instructions Interventions: ED Discharge Assessment Last Done: 06/23/25 15:42 Forms Stand Alone Forms: My [employer] Prescriptions Prescriptions: No Action mycophenolate mofetil 500 mg tablet 1,000 mg PO BID Qty: 360 3RF pantoprazole 40 mg tablet,delayed release (DR/EC) 40 mg PO BID Qty: 60 11RF albuterol sulfate 90 mcg/actuation HFA aerosol inhaler 2 puffs INH UD PRN (Reason: shortness of breath or wheezing) Patient Comments: have not needed in awhile gabapentin 100 mg capsule 100 mg PO HS Benlysta 200 mg/mL auto-injector 200 mg SUBCUT WK Rx Instructions: WEDNESDAY hydroxychloroquine 200 mg tablet 200 - 300 mg PO UD Rx Instructions: 200 / 300 every other day magnesium 200 mg Tablet 200 mg PO DAILY Referrals Referrals: Colten Yan DO [Primary Care Provider] - Discharge Problem: Pneumonia Qualifiers: Pneumonia type: due to unspecified organism Laterality: unspecified laterality Lung location: unspecified part of lung Qualified Code(s): J18.9 - Pneumonia, unspecified organism
--- NOTE | 2025-06-23 11:06 | XRay Report ---
Clinical History: Sepsis Technique: A frontal view of the chest was obtained Comparison is made to the prior examination dated 04/21/2025 Findings: There are new patchy left midlung and bilateral lung base opacities, concerning for pneumonia. The heart size is within normal limits. No pleural effusion or pneumothorax is seen. There is no definite pulmonary nodule. No fracture is noted. No foreign body is seen Impression: Suspected bilateral pneumonia Electronically signed by Lupillo Boudreaux 06-23-2025 11:06 AM
[2025-06-23] MEDS: diphenhydrAMINE 50 MG/ML VIAL IV STA (11:51)
[2025-06-23] MEDS: KETOROLAC TROMETHAMINE 15 MG/ML VIAL IV ONE (11:51)
[2025-06-23] MEDS: PROCHLORPERAZINE 2 ML IV ONE (11:52)
[2025-06-23] MEDS: SODIUM CHLORIDE 0.9% 1,000 ML IV ONE (11:52)
[2025-06-23 12:04] LABS: Appearance Urine Clear (Clear); Glucose Urine UA Negative (Negative)
[2025-06-23] MEDS: OPTIRAY 320 125ml IV ONE (12:12)
--- NOTE | 2025-06-23 12:26 | CT Scan Report ---
Technique: Axial computed tomography images were obtained of the chest after the administration of intravenous contrast according to the CT angiogram protocol Comparison is made to the prior CT dated 09/10/2022 Findings: There is no definite sign of pulmonary embolism. There are new multifocal groundglass and interstitial infiltrates throughout both lungs, most likely due to pneumonia. There is no pleural effusion or pneumothorax. There is an unchanged 5 mm right middle lobe nodule There are mildly enlarged mediastinal lymph nodes, measuring up to 1.3 cm in short axis. No hilar or axillary adenopathy is seen. The thoracic aorta appears unremarkable with no sign of aneurysm or dissection. There is no pericardial effusion The visualized upper abdomen appears unremarkable. No fracture is seen. No focal osseous lesion is evident Impression: 1. No definite sign of pulmonary embolism 2. Multifocal groundglass and interstitial pulmonary infiltrates bilaterally, likely due to viral or other atypical pneumonia 3. Mild mediastinal adenopathy, which may be secondary to the pneumonia 4. Unchanged 5 mm right middle lobe nodule, almost certainly benign given the long-term stability Electronically signed by Lupillo Boudreaux 06-23-2025 12:26 PM
--- NOTE | 2025-06-23 12:27 | CT Scan Report ---
Clinical History: Headache. Technique: Axial computed tomography images were obtained of the brain from the vertex to the skull base without intravenous contrast. Findings: There is no sign of intracranial hemorrhage. There is normal bess-white matter differentiation with no sign of acute or old infarction. No midline shift or other form of herniation is identified. There is no hydrocephalus. No obvious mass lesion is seen on this noncontrast examination. The visualized portions of the orbits and paranasal sinuses appear unremarkable. The mastoid air cells appear clear Impression: Unremarkable noncontrast CT of the brain Electronically signed by Lupillo Boudreaux 06-23-2025 12:27 PM
[2025-06-23] MEDS: CEFEPIME 2000MG 2,000 MG/20 ML SYR IV STA (12:42)
--- NOTE | 2025-06-23 13:06 | History & Physical Report ---
"Date of Service June 23, 2025 Assessment & Plan (1) Pneumonia: (2) Headache: (3) Lupus (systemic lupus erythematosus): (4) Devic's disease: (5) Asthenia: (6) GERD (gastroesophageal reflux disease): Plan Pt is a 55 y/o F with a PMHx significant for Migraines, SLE, Asthma, Devic's Disease, Lobluar CA in situ of breast, GERD, and Chronic back pain w/ spinal stenosis who presented to the ED c/o flu-like symptoms. #Pneumonia - 06/23 CXR w/ suspected bilat PNA; 06/23 Chest CTA w/ multifocal ground glass and interstitial pulmonary infiltrates bilat - likely viral/atyp PNA; 06/23 Resp Biofire Neg -Continuous O2 monitoring, Supplemental O2 prn, sat goal 90% -NSS IVF 100l @ 125mL/hr -Solumedrol 125mg x1 then Prednisone 30mg TID -IV Azithromycin + IV Rocephin, Transition Rocephin to PO Cefpodoxime after 48hrs then complete 7 day course of abx -DuoNebs Q4HWA -Albuterol HFA prn -CBC, BMP, Procal, CRP in AM #Headache | Hx Migraines - 06/[address] unremarkable; Noted in ED and improved w/ ED tx -Dehydration may be contributing, IVF as above -Pain: Tylenol 650mg prn -Monitor for sx #SLE - Follows w/ Rheumatology -Continue Hydroxychloroquine -Continue Mycophenolate Mofetil -Continue Benlysta - Dosed Q -ESR in AM #Devic's Disease - Followed by [facility] Neuro; Last appt 06/22 #Asthma - Continue Albuterol/actuation inhaler, as above #Lung Nodule - 06/23 Chest CTA notes unchanged 5mm RML nodule, likely benign #GERD - No acute concerns -Continue Pantoprazole 40mg BID #Chronic Lumbar Back Pain | Spinal Stenosis - No acute concerns -Continue Gabapentin VTE Proph: Lovenox Dispo: Admit Med/Surg CODE STATUS: Full Code History of Present Illness Chief Complaint: Flu Like Sx Primary Care Provider: Colten Yan, DO Pt is a 55 y/o F with a PMHx significant for Migraines, SLE, Asthma, Devic's Disease, Lobular CA in situ, GERD, TMJ, and Chronic back pain w/ spinal stenosis who presented to the ED c/o flu-like symptoms, at bedside. Pt notes that she had been cyclically experiencing flu-like sx off & on x a few mos [employer]. Pt's notes that during this time, she had developed a Malar Rash and scheduled an appointment with Rheumatology who noted that the pt was most likely experiencing SLE flares and recommended that she initiate a new SLE management medication, Benlysta. She received the 1st dose of this on 06/21. The following day, she had an appointment with her Neurologist. On the way home, her noticed that she started to look very ill and pt notes that she began to develop a headache and body aches. Pt notes that after her appointment she immediately went home and went to bed after being hit with a very sudden wave of fatigue. When the pt woke up today (06/23) she continued to feel exhausted and have a severe headache. Pt additionally notes a loss of appetite during this time. notes that pt has been taking Tylenol & Motrin regularly and has still developed low-grade fevers of 99F-100F. Pt Endorsees Fatigue, fever, chills, H/A, and Loss of appetite. She additionally admits to a brief episode of congestion 2wks [employer], but notes difficulty differentiating that from other episodes of flu-like sx. Pt denies wt loss/gain, changes in hearing or vision, cough, dyspnea, wheezing, palpitations, chest pain, N/V/D, constipation, frequency, urgency, dysuria, hematuria, and any current rashes or lesions. Pt notes that 2wks [employer] she experienced an episode of flu-like sx that may have been a cold. Pt was transported to the ED via . While in the ED, pt's VS demonstrated O2 Sat of 90% while on RA. CBC, CMP, and Procal were unremarkable. The patient received a CXR w/ suspected bilateral pneumonia, Chest CTA w/ Multifocal ground glatt and interstitial pulmonary infiltrates bilaterally. Pt was diagnosed with pneumonia and admitted to the hospital for further evaluation and care. Allergies Allergy/AdvReac Type Severity Reaction Status Date / Time Sulfa (Sulfonamide Allergy Mild RASH Verified 12/28/24 10:42 Antibiotics) Home Medications Medication Instructions Recorded Confirmed Type albuterol sulfate 90 mcg/actuation 2 puffs inhalation UD PRN 10/27/22 06/23/25 History aerosol inhaler shortness of breath or wheezing mycophenolate mofetil 500 mg tablet 1,000 mg (2 x 500 mg) PO BID #360 11/15/24 06/23/25 Rx tabs pantoprazole 40 mg tablet,delayed 40 mg PO BID #60 tabs 12/20/24 06/23/25 Rx release hydroxychloroquine 200 mg tablet 200 - 300 mg PO UD 12/25/24 06/23/25 History magnesium 200 mg tablet 200 mg PO DAILY 12/25/24 06/23/25 History belimumab 200 mg/mL subcutaneous 200 mg subcut WK 06/23/25 06/23/25 History auto-injector (Benlysta) gabapentin 100 mg capsule 100 mg PO HS 06/23/25 06/23/25 History Past Med/Surg History Problem List (Updated 06/23/25 @ 15:48 by STANLEY GonzalesC) Asthenia Lupus (systemic lupus erythematosus) Headache Weakness (Acute) Myalgia (Acute) Pneumonia (Acute) Early satiety High risk medication use Dyspnea on exertion Mild persistent asthma Idiopathic interstitial pneumonia Colon cancer screening Dyspnea Chronic cough cough is much better COVID-19 (Acute) COVID-19 (Acute) MCL sprain of left knee Knee pain, left Tear of medial meniscus of left knee Lobular carcinoma in situ (LCIS) of breast (Acute) Devic's disease (Acute) False positive antinuclear antibody level (Acute) Migraine, unspecified, not intractable, without status migrainosus (Acute) Positive LOVE (antinuclear antibody) (Acute) Vitamin D insufficiency Lumbar radiculopathy Abdominal pain, epigastric Encounter for pre-operative examination Neuromyelitis optica DX'D 2004 F/U [facility]-HAS AFFECTED HER BLADDER HX VISION LOSS AND RETURNED Urinary urgency History of IBS Back pain IBS (irritable bowel syndrome) (Chronic) Abdominal pain (Acute) Constipation (Acute) Abdominal pain (Acute) Medical History Hx of migraines Lumbar radiculopathy Mild persistent asthma states has resolved since taking hydroxychloriquine Devic's disease follows with neuro at [facility]- dr. salgado- also sees neuro at [facility]- no deficits Spinal stenosis Chronic back pain Lupus follows with dr. rosado in [facility]- states missing one marker for lupus History of dyspnea NOW RESOLVED History of COVID-19 + TEST AUG 04 2022 Difficult intravenous access Lobular carcinoma in situ hx- took tamoxifen for short time Abnormal CT scan, chest Palpitations hx/not for awhile/recent heart monitor worn- unknown results Lung nodule Fatigue Gastritis determined by endoscopy Immunosuppression Ischemic colitis hx Neuromyelitis optica follows with neurology at [facility] and also with Dr. Domínguez Herniated disc L4 L5-BACK PAIN GERD (gastroesophageal reflux disease) Temporomandibular joint disorder no clicking or locking recently- has had both in past Surgical History History of esophagogastroduodenoscopy (EGD) History of bronchoscopy states felt has lupus/ has lung damage Status post laparoscopic hysterectomy History of tooth extraction History of breast biopsy X 2-MILK DUCT REMOVAL X 2-3 both breasts History of colonoscopy History of section X 2 Family History Sister Breast cancer Unknown Heart disease Hypertension Asthma Father Pre-diabetes Brain cancer Mother History of stroke Denies family history of Colon cancer Ovarian cancer Prostate cancer Myocardial infarction Social History Smoking Status: Never smoker Second Hand Exposure: No; Do You Dip or Chew Tobacco: No; Hx Alcohol Use: Yes Alcohol type: wine Alcohol Intake Frequency: Monthly or Less Hx Substance Use: No Preferred Language: Kiswahili Communication Ability: Effective Visual Impairment: No Limitations Hearing Ability: Normal Home Health Clinical Liaison Required: No Beliefs That Will Affect Care: None marital status: Current Living Situation: Spouse current occupational status: unemployed How many Children do You have: 2 Feels Safe at Home: Yes Childhood Exposure to Second-Hand Smoke: Yes Diet: regular caffeine: Yes during the past year weight has: remained stable Dental Care, Regularly: Yes Physical Activity Frequency: Daily Seatbelt Use: always Sunscreen Use: Yes Assistive Devices: Contacts and Glasses Review of Systems Review of Systems: All systems reviewed & are unremarkable except as noted in Subjective Physical Exam Physical Exam: General: Pt is a 55 y/o WD/WN F in NAD in bed, at bedside VS: reviewed, unremarkable Skin: Warm and dry; no lesions or ulcerations Respiratory: Crackles heard at BL lung bases, no wheezing present. Chest expansion is full and symmetrical Cardio: RRR no murmurs Abdomen: Round, normoactive BS x4, nontender to palpation MSK: FROM of extremities, no deformities Extremities: no edema, strength intact Neuro: A&Ox4, cooperative but clearly fatigued, pt fell asleep during conversation Results & Data Results & Data Vital Signs (Past 12 Hours) Vital Signs Temp Pulse Resp BP Pulse Ox O2 Del Method 06/23/25 10:09 86 06/23/25 09:24 99.5 F 95 H 18 138/75 90 Room Air Laboratory Results Reviewed: CBC, CMP, Procalcitonin, UA, Biofire Diagnostic Findings Reviewed: CXR, Chest CTA, Head CT PG Care Time/CCT Total # of Minutes Spent Total Time Spent with Patient: Total time spent is greater than 50% in coordination of care (as documented) at patient's floor/unit and/or counseling patient: Coding Level of Care Code 38876 INT INP/OBS CARE 3/75MIN Diagnoses Pneumonia J18.9 Laterality: unspecified laterality Lung location: unspecified part of lung Pneumonia type: due to unspecified organism Headache R51.9 Lupus (systemic lupus erythematosus) M32.9 Devic's disease G36.0 Asthenia R53.1 GERD (gastroesophageal reflux disease) K21.9 (1) Pneumonia Laterality: unspecified laterality Lung location: unspecified part of lung Pneumonia type: due to unspecified organism Qualified Code(s): J18.9 - Pneumonia, unspecified organism"
[2025-06-23] MEDS: AZITHROMYCIN 500 MG/255 ML BAG IV ONE (13:16)
[2025-06-23 13:22] LABS: Chlamydia pneumoniae PCR Not Detected (NotDetected); Coronavirus 229E PCR Not Detected (NotDetected); Coronavirus CoV-2 (COVID19)PCR Not Detected (NotDetected); Coronavirus HKU1 PCR Not Detected (NotDetected); Coronavirus NL63 PCR Not Detected (NotDetected); Coronavirus OC43PCR Not Detected (NotDetected); Human Metapneumovirus PCR Not Detected (NotDetected); Parainfluenza Virus 1 PCR Not Detected (NotDetected); Parainfluenza Virus 2 PCR Not Detected (NotDetected); Parainfluenza Virus 3 PCR Not Detected (NotDetected); Parainfluenza Virus 4 PCR Not Detected (NotDetected); Respiratory Syncytial VirusPCR Not Detected (NotDetected); Rhinovirus/Enterovirus PCR Not Detected (NotDetected)
[2025-06-23] MEDS ORDERED: MELATONIN 3 MG TAB PO PRN (15:59)
[2025-06-23] MEDS ORDERED: POLYETHYLENE (MIRALAX) 17 GM PACK PO PRN (15:59)
[2025-06-23] MEDS ORDERED: ALBUTEROL 0.5% NEB SOLN 2.5 MG/0.5 ML VIAL NEB PRN (15:59)
[2025-06-23] MEDS ORDERED: ALBUTEROL HFA 8 GM INHALER INH PRN (15:59)
[2025-06-23] MEDS: ACETAMINOPHEN 325 MG TAB PO PRN (16:14)
[2025-06-23] MEDS: SODIUM CHLORIDE 0.9% 1,000 ML IV SCH (16:21)
[2025-06-23] MEDS: cefTRIAXone SODIUM 2,000 MG/50 ML BAG IV SCH (16:53)
[2025-06-23] MEDS: ONDANSETRON INJ 2 MG/ML 2 ML VIAL IV PRN (17:19)
[2025-06-23] MEDS: HYDROXYCHLOROQUINE SULFATE 200 MG TAB PO SCH (19:22)
[2025-06-23] MEDS: MYCOPHENOLATE MOFETIL 250 MG CAP PO SCH (20:39)
[2025-06-23] MEDS: GABAPENTIN 100 MG CAP PO SCH (20:39)
[2025-06-23 22:25] VITALS: RESP 16; O2SAT 92
[2025-06-24 06:08] LABS: Hematocrit (blood only) 34.7 % (37.0-47.0); Hemoglobin 11.8 g/dL (12.0-16.0); Immature Granulocytes # (auto) 0.02 K/uL (0.01-0.20); Immature Granulocytes % (auto) 0.3 %; Mean Corpuscular Hemoglobin 30.3 pg (25.0-34.0); Mean Corpuscular Volume 89.0 fL (80.0-100.0); Platelet Count 269 K/uL (130-400); RDW Standard Deviation 39.0 fL (36.4-46.3); Red Blood Count 3.90 M/uL (4.20-5.40); White Blood Count 6.49 K/ul (4.8-10.8)
[2025-06-24 06:23] LABS: Anion Gap 9.0 (3-11); Blood Urea Nitrogen 11.0 mg/dl (6-23); Calcium 8.5 mg/dl (8.6-10.3); Carbon Dioxide 22.0 mmol/L (21-32); Chloride 109.0 mmol/L (98-107); Creatinine Clr Calc Pharmacy 114.4 ml/min; Glucose 126.0 mg/dl (70-99(Fasting)); Magnesium 2.1 mg/dl (1.7-2.4); Potassium 4.0 mmol/L (3.5-5.1); Sodium 140.0 mmol/L (136-145)
[2025-06-24 07:09] VITALS: BP 126/74; PULSE 76; TEMP 98.1
[2025-06-24] MEDS: ENOXAPARIN INJ 40 MG/0.4 ML SYR SQ SCH (08:25)
[2025-06-24] MEDS: MAGNESIUM OXIDE 400 MG TAB PO SCH (08:26)
--- NOTE | 2025-06-24 09:20 | Hospitalist Progress Note ---
"Date of Service June 24, 2025 Assessment & Plan (1) Pneumonia: (2) Headache: (3) Lupus (systemic lupus erythematosus): (4) Devic's disease: (5) Asthenia: (6) GERD (gastroesophageal reflux disease): Plan Pt is a 55 y/o F with a PMHx significant for Migraines, SLE, Asthma, Devic's Disease, Lobluar CA in situ of breast, GERD, and Chronic back pain w/ spinal stenosis who presented to the ED c/o flu-like symptoms. #Pneumonia - 06/23 CXR w/ suspected bilat PNA; 06/23 Chest CTA w/ multifocal ground glass and interstitial pulmonary infiltrates bilat - likely viral/atyp PNA; 06/23 Resp Biofire Neg -Continuous O2 monitoring, Supplemental O2 prn, sat goal 90% -NSS IVF 100l @ 125mL/hr -Solumedrol 125mg x1 then Prednisone 30mg TID -IV Azithromycin + IV Rocephin, Transition Rocephin to PO Cefpodoxime after 48hrs then complete 7 day course of abx -DuoNebs Q4HWA -Albuterol HFA prn -CBC, BMP, Procal, CRP in AM #Headache | Hx Migraines - 06/[address] unremarkable; Noted in ED and improved w/ ED tx -Dehydration may be contributing, IVF as above -Pain: Tylenol 650mg prn -Monitor for sx #SLE - Follows w/ Rheumatology -Continue Hydroxychloroquine -Continue Mycophenolate Mofetil -Continue Benlysta - Dosed Q -ESR in AM #Devic's Disease - Followed by [facility]'s Neuro; Last appt 06/22 #Asthma - Continue Albuterol/actuation inhaler, as above #Lung Nodule - 06/23 Chest CTA notes unchanged 5mm RML nodule, likely benign #GERD - No acute concerns -Continue Pantoprazole 40mg BID #Chronic Lumbar Back Pain | Spinal Stenosis - No acute concerns -Continue Gabapentin VTE Proph: Lovenox Dispo: Admit Med/Surg CODE STATUS: Full Code Admission and Anticipated Discharge Date Admission Date: June 23, 2025 Review of Systems Review of Systems: All systems reviewed & are unremarkable except as noted in Subjective Physical Exam Physical Exam: General: Pt is a 55 y/o WD/WN F in NAD in bed, at bedside VS: reviewed, unremarkable Skin: Warm and dry; no lesions or ulcerations Respiratory: Crackles heard at BL lung bases, no wheezing present. Chest expansion is full and symmetrical Cardio: RRR no murmurs Abdomen: Round, normoactive BS x4, nontender to palpation MSK: FROM of extremities, no deformities Extremities: no edema, strength intact Neuro: A&Ox4, cooperative but clearly fatigued, pt fell asleep during conversation Results & Data Results & Data Vital Signs (Past 12 Hours) Vital Signs Temp Pulse Resp BP Pulse Ox O2 Del Method 06/24/25 07:08 98.1 F 76 16 126/74 92 Room Air 06/23/25 22:21 97.9 F 79 16 122/76 92 Room Air Laboratory Results reviewed: Pro-Erwin, BMP, CBC PG Care Time/CCT Total # of Minutes Spent Total Time Spent with Patient: Total time spent is greater than 50% in coordination of care (as documented) at patient's floor/unit and/or counseling patient: Coding Diagnoses Pneumonia J18.9 Laterality: unspecified laterality Lung location: unspecified part of lung Pneumonia type: due to unspecified organism Headache R51.9 Lupus (systemic lupus erythematosus) M32.9 Devic's disease G36.0 Asthenia R53.1 GERD (gastroesophageal reflux disease) K21.9 (1) Pneumonia Laterality: unspecified laterality Lung location: unspecified part of lung Pneumonia type: due to unspecified organism Qualified Code(s): J18.9 - Pneumonia, unspecified organism"
--- NOTE | 2025-06-24 11:07 | Discharge Summary ---
"<Statement entered by Pramod Lord MD - 06/24/25 14:43> I saw and evaluated the patient with the PA, agree with the above documented care plan with no revisions Discharge Summary Date of Service June 24, 2025 Principal Dx & Hospital Course #1 = Principal Diagnosis (1) Pneumonia: (2) Headache: (3) Lupus (systemic lupus erythematosus): (4) Devic's disease: (5) Asthenia: (6) GERD (gastroesophageal reflux disease): Plan #Pneumonia -Pt is a 55 y/o F with a PMHx significant for Migraines, SLE, Asthma, Devic's Disease, Lobluar CA in situ of breast, GERD, and Chronic back pain w/ s marisela stenosis who presented to the ED c/o flu-like symptoms. While pt was in the ED CXR was w/ suspected bilat PNA and a Chest CTA was w/ multifocal ground glass and interstitial pulmonary infiltrates bilat and is likelu viral/atypical PNA. Biofire in ED was negative and pt was given dose of Cefepime. Pt was admitted to the hospital where she received IV Azithromycin and IV Rocephin as well as a loading dose of Solumedrol 125mg IV. Pt additionally received DuoNebs Q4HWA while admitted. Pt will be d/c home on PO Azithromycin and Cefpodoxime and a steroid taper. #Headache | Hx Migraines - 06/[address] unremarkable; Noted in ED and improved w/ ED tx; Dehydration may have contributed to sx, pt was given IVF overnight with improvement. #SLE - Follows w/ Rheumatology; Should continue home Hydroxychloroquine, Mycophenolate Mofetil, and Benslysta as prescribed #Devic's Disease - Followed by [facility] Neuro; Last appt 06/22, continue to follow-up as scheduled #Asthma - Continue Albuterol/actuation inhaler, as above #Lung Nodule - 06/23 Chest CTA notes unchanged 5mm RML nodule, likely benign #GERD - No acute concerns, Continue Pantoprazole 40mg BID #Chronic Lumbar Back Pain | Spinal Stenosis - No acute concerns, Continue Gabapentin Dispo: Home Self-care Admission HPI Per Admitting Provider Pt is a 55 y/o F with a PMHx significant for Migraines, SLE, Asthma, Devic's Disease, Lobular CA in situ, GERD, TMJ, and Chronic back pain w/ spinal stenosis who presented to the ED c/o flu-like symptoms, at bedside. Pt notes that she had been cyclically experiencing flu-like sx off & on x a few mos [employer]. Pt's notes that during this time, she had developed a Malar Rash and scheduled an appointment with Rheumatology who noted that the pt was most likely experiencing SLE flares and recommended that she initiate a new SLE management medication, Benlysta. She received the 1st dose of this on 06/21. The following day, she had an appointment with her Neurologist. On the way home, her noticed that she started to look very ill and pt notes that she began to develop a headache and body aches. Pt notes that after her appointment she immediately went home and went to bed after being hit with a very sudden wave of fatigue. When the pt woke up today (06/23) she continued to feel exhausted and have a severe headache. Pt additionally notes a loss of appetite during this time. notes that pt has been taking Tylenol & Motrin regularly and has still developed low-grade fevers of 99F-100F. Pt Endorsees Fatigue, fever, chills, H/A, and Loss of appetite. She additionally admits to a brief episode of congestion 2wks [employer] WORK[employer], but notes difficulty differentiating that from other e pisodes of flu-like sx. Pt denies wt loss/gain, changes in hearing or vision, cough, dyspnea, wheezing, palpitations, chest pain, N/V/D, constipation, frequency, urgency, dysuria, hematuria, and any current rashes or lesions. Pt notes that 2wks [employer] WORK[employer] she experienced an episode of flu-like sx that may have been a cold. Pt was transported to the ED via . While in the ED, pt's VS demonstrated O2 Sat of 90% while on RA. CBC, CMP, and Procal were unremarkable. The patient received a CXR w/ suspected bilateral pneumonia, Chest CTA w/ Multifocal ground glatt and interstitial pulmonary infiltrates bilaterally. Pt was diagnosed with pneumonia and admitted to the hospital for further evaluation and care. Discharge Exam General: Pt is a 55 y/o WD/WN F in NAD in bed, at bedside VS: reviewed, unremarkable Respiratory: decreased sounds bilat lung bases, no wheezing present. Chest expansion is full and symmetrical Cardio: RRR no murmurs Abdomen: Round, normoactive BS x4, nontender to palpation Discharge Plan Discharge Items Patient Disposition: Home - Self-Care Reason For Visit: PNEUMONIA Discharge Diagnosis: Pneumonia Condition on Discharge: Fair Activity: Resume your previous activity Non-emergency contact: Primary Care Provider Call non-emergency contact if: you have any medication questions, your symptoms worsen and you have a fever Follow-up/Referrals: Colten Yan DO [Primary Care Provider] - 06/29/25 9:20 am (Follow-up within 1 week of hospital discharge) Diet: Regular Addtl Attending Provider Instructions: Hospital Course: You were admitted to the hospital for pneumonia. While you were in the ED an X- ray of your chest was suspicious for bilateral pneumonia and a later Chest CTA demonstrated the presence of pulmonary infiltrates which confirmed a likely pneumonia. A viral panel was performed as well and resulted negative. Following admission to the hospital, your were given IV Azithromycin and IV Rocephen in addition to a dose of IV steroids. The following day you demonstrated great improvement of symptoms and were stable for discharge. 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 An updated list of all your medications is included with your hospital discharge paperwork. Please review this list closely, and make note of any changes. Take your medications as instructed; do not skip a dose of your medicines. Make sure all of your doctors know every medicine you are taking (including yjyx-hvw-ptubcyo medicines, vitamins, and supplements). Call your primary care provider before taking any new medicines (including over- the-counter medicines, vitamins, and supplements), because some of these may interact with your current medications, or may make your symptoms worse. Tell your primary care provider if you cannot afford your medications. Activity: You can do normal everyday activities as your body allows. Take rest breaks if you feel tired. Do not overexert. Stop activity if you have pain, shortness of breath or feel dizzy. Follow-up appointments: Make an appointment with your primary care physician within one week of discharge. A copy of this summary will be sent to them. Every time you see your primary care physician, or any other doctor, bring your medication list, and a list of questions. CONTACT YOUR PRIMARY CARE PROVIDER if you experience any of the following: Shortness of breath or difficulty breathing Fevers or chills Feeling tired with normal activity or experiencing dizziness or fainting Difficulty following your treatment plan, or difficulty taking medications CALL 911 OR GO TO THE EMERGENCY DEPARTMENT if you experience any of the following: Severe abdominal pain or nausea/vomiting Severe chest pain, or chest pain that radiates (moves) to your jaw or arm Sudden, severe shortness of breath or difficulty breathing Thank you for allowing us to participate in your care. Pending Studies at Discharge: No Stand-Alone Forms: [facility], Smoking Cessation Medications and DC Order Prescriptions: New cefpodoxime 200 mg tablet 200 mg PO BID 6 Days Qty: 12 0RF Rx Instructions: must administer with a meal/food azithromycin 250 mg tablet See Rx Instructions .ROUTE .COMPLEX Qty: 6 0RF Rx Instructions: For 250 mg dose pack: take 500 mg today (day 1), then 250 mg for 4 days (days 2-5) prednisone 10 mg tablet 10 mg PO DAILY Qty: 30 0RF Rx Instructions: Take 4 tabs for 3 days, then 3 tabs for 3 days, then 2 tabs for 3 days, then 1 tab for 3 days Continued mycophenolate mofetil 500 mg tablet 1,000 mg PO BID Qty: 360 3RF pantoprazole 40 mg tablet,delayed release (DR/EC) 40 mg PO BID Qty: 60 11RF albuterol sulfate 90 mcg/actuation HFA aerosol inhaler 2 puffs INH UD PRN (Reason: shortness of breath or wheezing) Patient Comments: have not needed in awhile gabapentin 100 mg capsule 100 mg PO HS Benlysta 200 mg/mL auto-injector 200 mg SUBCUT WK Rx Instructions: WEDNESDAY hydroxychloroquine 200 mg tablet 200 - 300 mg PO UD Rx Instructions: 200 / 300 every other day magnesium 200 mg Tablet 200 mg PO DAILY Discharge Orders: Discharge Order (Routine); Ordered 06/24/25 Ordered By: Fina Harris Admission Data Admit Date/Time: 06/23/25 14:43 Attending Provider: Pramod Lord Admit Provider: Pramod Lord Primary Care Provider: Colten Yan Other Providers: Pramod Lord Other Interventions: Discharge Summary Assessment (RN) Last Done: 06/24/25 11:55 Hospital Stay Data Consultations 06/23/25 13:32 ED Decision to Admit Stat Diagnostic Imagining Performed 06/23/25 11:32 CT angio chest PE protocol Stat 06/23/25 11:38 CT head/brain wo con Stat Discharge Instructions Given to Patient (Per Discharging Provider) Hospital Course: You were admitted to the hospital for pneumonia. While you were in the ED an X- ray of your chest was suspicious for bilateral pneumonia and a later Chest CTA demonstrated the presence of pulmonary infiltrates which confirmed a likely pneumonia. A viral panel was performed as well and resulted negative. Following admission to the hospital, your were given IV Azithromycin and IV Rocephen in addition to a dose of IV steroids. The following day you demonstrated great improvement of symptoms and were stable for discharge. 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 An updated list of all your medications is included with your hospital discharge paperwork. Please review this list closely, and make note of any changes. Take your medications as instructed; do not skip a dose of your medicines. Make sure all of your doctors know every medicine you are taking (including gccz-rmd-xijabqn medicines, vitamins, and supplements). Call your primary care provider before taking any new medicines (including over- the-counter medicines, vitamins, and supplements), because some of these may interact with your current medications, or may make your symptoms worse. Tell your primary care provider if you cannot afford your medications. Activity: You can do normal everyday activities as your body allows. Take rest breaks if you feel tired. Do not overexert. Stop activity if you have pain, shortness of breath or feel dizzy. Follow-up appointments: Make an appointment with your primary care physician within one week of discharge. A copy of this summary will be sent to them. Every time you see your primary care physician, or any other doctor, bring your medication list, and a list of questions. CONTACT YOUR PRIMARY CARE PROVIDER if you experience any of the following: Shortness of breath or difficulty breathing Fevers or chills Feeling tired with normal activity or experiencing dizziness or fainting Difficulty following your treatment plan, or difficulty taking medications CALL 911 OR GO TO THE EMERGENCY DEPARTMENT if you experience any of the following: Severe abdominal pain or nausea/vomiting Severe chest pain, or chest pain that radiates (moves) to your jaw or arm Sudden, severe shortness of breath or difficulty breathing Thank you for allowing us to participate in your care. Total Time Total Time Spent Total Time Spent (In Minutes): Time spent day of discharge 35 minutes including direct patient care, medication reconciliation, documentation, review of labs and images, and coordination of care. Coding Level of Care Code 11731 INP/OBS DISCH >30 MIN Diagnoses Pneumonia J18.9 Laterality: unspecified laterality Lung location: unspecified part of lung Pneumonia type: due to unspecified organism Headache R51.9 Lupus (systemic lupus erythematosus) M32.9 Devic's disease G36.0 Asthenia R53.1 GERD (gastroesophageal reflux disease) K21.9"
[2025-06-24] MEDS: HYDROXYCHLOROQUINE SULFATE 200 MG TAB PO SCH (12:17)
[2025-06-24] MEDS ORDERED: AZITHROMYCIN 500 MG/255 ML BAG IV SCH (13:00)
--- NOTE | 2025-06-25 06:12 | Electrocardiogram Report ---
Test Reason : Blood Pressure : */* mmHG Vent. Rate : 87 BPM Atrial Rate : 87 BPM P-R Int : 144 ms QRS Dur : 100 ms QT Int : 362 ms P-R-T Axes : 70 39 52 degrees QTcB Int : 435 ms Normal sinus rhythm Incomplete right bundle branch block Possible Anterior infarct (cited on or before 04-Aug-2022) Abnormal ECG When compared with ECG of 04-Aug-2022 09:12, No significant change was found Confirmed by Parth Garces ([id number]) on 06/25/2025 6:11:54 AM Referred By: REFERRED SELF Confirmed By: Parth Garces
== END 2025-06-24 12:58 | disposition home or self-care (01) | DRG 194 ==
LOC: ED 09:19 → 3N 14:43